=== PATIENT | male | born 1960 | race Caucasian/White ===

== ENCOUNTER → 2024-08-16 | Outpatient (CLI) | payer BC ==
[~2024-08-16] MED LIST: ACET65TA OR; AVEL1TAB2 OR; CRES5TAB OR; NEXI1CAP3 OR; PERC5TAB8 OR; PERC7.5T8 OR
== END ==
LOC: M RAD 11:32
PROVIDERS: ATTEND Internal Medicine Critical Care Medicine
DX: J06.9 Acute upper respiratory infection, unspecified (principal)

== ENCOUNTER → 2025-01-09 | Outpatient (CLI) | payer BC | LOC: M SLEEP HO 11:37 | PROVIDERS: ATTEND Internal Medicine Critical Care Medicine | DX: G47.30 Sleep apnea, unspecified (principal) ==

== ENCOUNTER → 2025-03-03 | Outpatient (CLI) | payer BC | LOC: M SLEEP 20:00 | PROVIDERS: ATTEND Internal Medicine Critical Care Medicine | DX: G47.33 Obstructive sleep apnea (adult) (pediatric) (principal) ==